=== PATIENT | female | born 1965 ===

== ENCOUNTER 2019-01-14 08:18 | Outpatient (CLI) | payer OTHER ==
[2019-01-14] MEDS ORDERED: FLONASE16 GM NASAL (09:19)
== END 2019-01-14 09:29 | disposition home or self-care (01) ==
LOC: OFIC 805 08:18
DX: R06.83 Snoring (principal); G47.39 Other sleep apnea; J31.0 Chronic rhinitis; J34.2 Deviated nasal septum; H93.13 Tinnitus, bilateral